=== PATIENT | female | born 1955 | race Caucasian/White ===

== ENCOUNTER 2022-10-30 08:43 | Outpatient (RCR) | payer MEDICARE, BC, SELFPAY | END 2023-04-11 23:59 | disposition home or self-care (01) | PROVIDERS: PCP Family Medicine; Visit Provider Family Medicine | DX: H81.10 Benign paroxysmal vertigo, unspecified ear (principal); R26.89 Other abnormalities of gait and mobility; M54.2 Cervicalgia; F44.6 Conversion disorder with sensory symptom or deficit; Z96.659 Presence of unspecified artificial knee joint; R11.0 Nausea; R61 Generalized hyperhidrosis; Z51.89 Encounter for other specified aftercare | CPT/HCPCS: 97162; 97535 ==

== ENCOUNTER 2025-09-13 20:53 | Outpatient (CLI) | payer MEDICARE, BC, SELFPAY | END 2025-09-13 20:54 | disposition home or self-care (01) | LOC: SLEEP 20:54 | PROVIDERS: PCP Family Medicine; Visit Provider Internal Medicine | DX: G47.9 Sleep disorder, unspecified (principal) | CPT/HCPCS: 95810 ==